=== PATIENT | female | born 1995 | race Caucasian/White ===

== ENCOUNTER 2016-12-09 05:42 | Emergency (ER) | payer OTHER ==
[~2016-12-09] VITALS: Ht 170.2 cm; Wt 59.3 kg
[~2016-12-09 05:42] MED LIST: PRENTAB26 PO
[2016-12-09] MEDS ORDERED: ONDANSETRON INJ 2 MG/ML 2 ML VIAL IV STA (06:03)
[2016-12-09] MEDS ORDERED: MoRPHine SULFATE 4 MG/ML 1 ML CARP\\VIAL IV STA (06:03)
[2016-12-09] MEDS ORDERED: SODIUM CHLORIDE 0.9% 1000ML 1,000 ML IV STA ×2 (06:03)
[2016-12-09] MEDS ORDERED: ALUMINUM/MAGNESIUM SUSP 30 ML UDC PO STA (06:05)
[2016-12-09] MEDS ORDERED: LIDOCAINE HCL 2% VISC SOLN 20 ML UDC PO STA (06:05)
[2016-12-09 06:44] LABS: BASO % 0.3 %; BASO ABS # 0.02 K/uL (0-0.2); COMPLETE YES; HEMATOCRIT 39.4 % (37-47); IG% 0.3 %; LYMPH % 13.4 %; MEAN CELL VOLUME 83.1 fL (80-100); MEAN CORPUSCULAR HEMOGLOBIN 30.2 pg (25-34); MEAN CORPUSCULAR HGB CONC 36.3 g/dl (32-36); MEAN PLATELET VOLUME 9.7 fL (7.4-10.4); MONO % 9.1 %; NEUT % 75.9 %; PLATELET COUNT 156 K/uL (130-400); RED BLOOD COUNT 4.74 M/uL (4.2-5.4); WHITE BLOOD COUNT 6.72 K/uL (4.8-10.8)
[2016-12-09 06:47] LABS: URINE APPEARANCE CLEAR (CLEAR); URINE BILIRUBIN NEG (NEG); URINE COLOR YELLOW; URINE NITRITE NEG (NEG); URINE PH 5.5 (4.5-7.5); URINE SPECIFIC GRAVITY 1.009 (1.000-1.030); UROBILINOGEN NEG (NEG); ZZUR CULT IF INDIC CLEAN CATCH NO
[2016-12-09 06:49] LABS: MANUAL MICROSCOPIC REQUIRED? NO; REVIEW REQ? NO
[2016-12-09 07:01] LABS: BUN/CREATININE RATIO 14.6 (10-20); CALCIUM 8.4 mg/dl (8.5-10.1); CREATININE 0.72 mg/dl (0.60-1.20); POTASSIUM 3.1 mmol/L (3.5-5.1)
[2016-12-09 07:05] LABS: PREG INTERNAL NEGATIVE QC NEG CLEAR BACKGROUND; PREG INTERNAL POSITIVE QC POS CONTROL LINE
--- NOTE | 2016-12-09 07:50 | DIAGNOSTIC IMAGING REPORT ---
[facility] ultrasound GALLBLADDER-ABD LIMITED CLINICAL HISTORY: rug pain, ? GB pain. Nausea. TECHNIQUE: Real-time ultrasound COMPARISON STUDY: None FINDINGS: Trace amount of sludge within the gallbladder lumen. Very small polyp measuring 2 mm. No significant shadowing gallstones., Wall top limits normal 3 mm. Critical trace pericholecystic fluid. Common bile duct 5 mm. Liver pancreas and right kidney are unremarkable. IMPRESSION: 1. Small amount of gallbladder sludge with a small gallbladder polyp. 2. Slight prominence the gallbladder wall with a trace amount of pericholecystic fluid. 3. Normal caliber bile ducts. 4. Acute cholecystitis must be consideration diagnostically Electronically signed by: Aidan Haque M.D. 12/09/2016 7:49 AM Dictated Date/Time: 12/09/2016 7:45 AM
[2016-12-09] MEDS ORDERED: MoRPHine SULFATE 2 MG/ML CARP IV STA (09:00)
[2016-12-09] MEDS ORDERED: AMPICILLIN/SULBACTAM SOD INJ 3,000 MG in SODIUM CHLORIDE 0.9% 100ML 100 ML IV STA (10:11)
[2016-12-09] MEDS ORDERED: BUPIVACAINE/EPINEPHRINE 0.5% MPF 1:200,000 30 ML VIAL ONE (10:16)
[2016-12-09] MEDS ORDERED: LIDOCAINE HCL 2% 2 ML VIAL (20MG/ML) ONE (10:18)
[2016-12-09] MEDS ORDERED: PROPOFOL IV EMULSION 10 MG/ML 20 ML VIAL IV ONE (10:18)
[2016-12-09] MEDS ORDERED: NEOSTIGMINE METHYLSULFATE 5 MG/5 ML SYR ONE (10:18)
[2016-12-09] MEDS ORDERED: MIDAZOLAM HCL 1 MG/ML 2ML VIAL ONE (10:18)
[2016-12-09] MEDS ORDERED: ROCURONIUM BROMIDE 10 MG/ML 5 ML VIAL ONE (10:18)
[2016-12-09] MEDS ORDERED: GLYCOPYRROLATE INJ 0.2 MG/ML VIAL ONE ×2 (10:18→11:50)
[2016-12-09] MEDS ORDERED: ONDANSETRON INJ 2 MG/ML 2 ML VIAL ONE (10:18)
[2016-12-09] MEDS ORDERED: FENTANYL CITRATE INJ 50 MCG/1 ML 2 ML VIAL ONE (10:18)
[2016-12-09] MEDS ORDERED: DEXAMETHASONE SOD INJ 4 MG/ML VIAL ONE (10:18)
--- NOTE | 2016-12-09 10:33 | History and Physical ---
History & Physical Date Dec 09, 2016. Chief Complaint upper abdominal pain, nausea and vomitting History of Present Illness The patient is a 21 year old female with complaints of 2-3 day history of worsening upper abdominal pain, radiation into the back, with nausea and vomitting. feeling better after pain/nausea meds but still having some epigastric discomfort Past Medical/Surgical History Medical Problems: (1) Spontaneous onset of labor Additional History Hepatic Disease: No Endocrine Disorder: No Kidney Disease: No Hypertension: No Heart Disease: No Bleeding Tendencies: No Infectious Diseases: No Allergies Coded Allergies: No Known Allergies (Unverified , 07/03/16) Home Medications Unable to Obtain Active Prescriptions or Reported Meds Physical Examination Skin: warm/dry Eyes: normal inspection, EOMI Head: normocephalic Neck: supple Respiratory/Chest: lungs clear, no respiratory distress Cardiovascular: no edema Abdomen / GI: + pertinent finding (+RUQ and epigastric TTP. no g/r/r) Extremities: normal inspection Diagnosis US shows acute cholecystitis with pericholecystic fluid discussed options discussed risks of surgery ( bleeding/infection/dvt/pe/mi/injury to bile ducts or bowel etc...) questions answered. she would like to proceed with lap chandu today
[2016-12-09] MEDS ORDERED: HYDR-5688 PO (10:34)
[2016-12-09 10:35] VITALS: O2SAT 99; Ht 170.2 cm; Wt 59.3 kg
--- NOTE | 2016-12-09 10:36 | Discharge Instructions ---
Discharge Instructions Admission Reason for Admission: acute cholecystitis Discharge Discharge Diagnosis / Problem: cholecystitis Discharge Goals Goal(s): Decrease discomfort, Improve function Activity Recommendations Activity Limitations: per Instructions/Follow-up section Exercise/Sports Limitations: until after follow-up appointment May Resume Sexual Activity: after follow-up appointment Shower/Bathe: tomorrow . Instructions / Follow-Up Instructions / Follow-Up call [phone] for follow up appointment with Dr. Duran in 1-2 weeks. no lifting over 15-20 lbs or strenuous activity Current Hospital Diet Patient's current hospital diet: Discharge Diet Recommended Diet: Regular Diet Procedures Procedures Performed: cholecystectomy Pending Studies Studies pending at discharge: yes List of pending studies: pathology report Medical Emergencies . Who to Call and When: Medical Emergencies: If at any time you feel your situation is an emergency, please call 911 immediately. . Non-Emergent Contact Non-Emergency issues call your: Primary Care Provider, Surgeon Call Non-Emergent contact if: temperature is above 101, wound has increased drainage, wound has increased redness, wound has increased pain . "Provider Documentation" section prepared by Juanjo Duran. VTE Core Measure Inpt VTE Proph given/why not?: SCD's
[2016-12-09] MEDS ORDERED: MEPERIDINE HCL 25 MG/ML CARP IV PRN (11:00)
[2016-12-09] MEDS ORDERED: ONDANSETRON INJ 2 MG/ML 2 ML VIAL IV PRN ×2 (11:00→12:00)
[2016-12-09] MEDS ORDERED: EpHEDrine SULFATE INJ 50 MG/ML AMP IV PRN (11:00)
[2016-12-09] MEDS ORDERED: LABETALOL HCL IV 5 MG/ML 20ML IV PRN (11:00)
[2016-12-09] MEDS ORDERED: HYDROmorphone INJ 1 MG/ML SYR IV PRN (11:00)
[2016-12-09] MEDS ORDERED: ATROPINE SULFATE 0.1 MG/ML 5ML SYR IV PRN (11:00)
[2016-12-09] MEDS ORDERED: SODIUM CHLORIDE 0.9% 1000ML 1,000 ML IV SCH (11:56)
--- NOTE | 2016-12-09 11:56 | [facility] Operative Report ---
Operative Report Operative Date Dec 09, 2016. Pre-Operative Diagnosis Acute Cholecystitis with Pericholecystic Fluid Post-Operative Diagnosis acute cholecystitis Procedure(s) Performed lap chandu Surgeon Dr. Duran [employer] Supervisor Surgeon(s) none Estimated Blood Loss 10 mL Findings mild acute inflammation Specimens A: gall bladder and contents Anesthesia GET Complication(s) None Disposition Recovery Room / PACU I attest to the content of the Intraoperative Record and any orders documented therein. Any exceptions are noted below.
[2016-12-09] MEDS ORDERED: HYDROCODONE/ACETAMOPHEN 5/325MG TAB PO PRN ×2 (12:00)
[2016-12-09] MEDS ORDERED: IBUPROFEN 600 MG TAB PO PRN (12:00)
[2016-12-09] MEDS ORDERED: KETOROLAC TROMETHAMINE 30 MG/ML VIAL IV. PRN (12:00)
[2016-12-09] MEDS: FENTANYL CITRATE INJ 50 MCG/1 ML 2 ML VIAL IV PRN ×2 (12:25→12:30)
--- NOTE | 2016-12-09 12:33 | OPERATIVE REPORT ---
DATE OF OPERATION: 12/09/2016 PREOPERATIVE DIAGNOSIS: Acute cholecystitis. POSTOPERATIVE DIAGNOSIS: Same. PROCEDURE: Laparoscopic cholecystectomy. SURGEON: Dr. Duran. ESTIMATED BLOOD LOSS: Approximately 10 mL. COMPLICATIONS: No immediate. ANESTHESIA: General endotracheal. The patient tolerated the procedure well. OPERATIVE NOTE: After informed consent was obtained, the patient was taken to the operating suite and placed in the supine position. After successful intubation, the abdomen was sterilely prepped and draped in usual fashion. A periumbilical incision was made with an 11 blade scalpel and carried down through the soft tissue using electrocautery. The anterior rectus fascia was opened using electrocautery and two #0 Vicryl stay sutures were placed. Peritoneum was elevated with hemostats and incised under direct vision using a Metzenbaum scissors. A finger sweep was performed. A 12 mm Meme trocar was placed. The abdomen was insufflated to 18 mmHg. Laparoscope was inserted and the abdomen was examined 360 degrees. A subxiphoid 5-mm port and 2 right upper quadrant 5 mm ports were placed under direct vision. The patient was placed in reverse Trendelenburg position slightly airplaned to the left. The gallbladder was grasped and elevated superiorly and laterally. A [place] dissector was used to take down adhesions around the neck of the gallbladder. There was some mild acute inflammation. I was able to skeletonize the cystic duct, clip it twice proximally and once distally and transected using laparoscopic scissors. In similar fashion, the cystic artery was identified, skeletonized, clipped and divided as well. The gallbladder was removed from the gallbladder fossa using electrocautery. It was removed intact. Several small bleeding points in the gallbladder fossa were controlled using electrocautery as well. A thorough irrigation of the right upper quadrant was performed. At the end of the procedure, there was adequate hemostasis and no evidence of a bile leak. A quick look around the abdomen showed no other gross abnormalities. The gallbladder was placed into an EndoCatch bag and removed from the camera port site. The trocars were all removed and the abdomen desufflated. The fascia of the camera port was closed using 0 Vicryl in a [id number] fashion. All the wounds were irrigated and closed using 4-0 Monocryl. Marcaine was injected around them for postoperative analgesia and skin glue used as a dressing. The patient was awakened, extubated, and transferred to recovery in stable condition. I attest to the content of the Intraoperative Record and any orders documented therein. Any exceptio ns are noted below.
--- NOTE | 2016-12-09 12:46 | Anesthesiology Progress Note ---
Anesthesia Post Op Note Date & Time Dec 09, 2016 at 12:46 Vital Signs Pain Intensity: 4 Vital Signs Past 12 Hours Date Time Temp Pulse Resp B/P Pulse Ox O2 Delivery O2 Flow Rate FiO2 12/09/16 12:30 63 16 120/70 96 Room Air 12/09/16 12:20 67 16 117/68 100 Mask 10 12/09/16 12:08 91 16 120/72 100 Mask 10 12/09/16 12:02 36.2 91 12 126/77 100 Mask 10 12/09/16 10:35 99 Room Air 12/09/16 10:20 62 20 108/63 97 12/09/16 09:47 60 18 106/58 99 Room Air 12/09/16 07:51 66 20 130/71 100 Room Air 12/09/16 06:35 Room Air 12/09/16 05:48 36.5 79 18 112/69 98 Room Air Notes Mental Status: alert / awake / arousable, participated in evaluation Pt Amnestic to Procedure: Yes Nausea / Vomiting: adequately controlled Pain: adequately controlled Airway Patency, RR, SpO2: stable & adequate BP & HR: stable & adequate Hydration State: stable & adequate Anesthetic Complications: no major complications apparent
[2016-12-09 12:53] VITALS: BP 108/61; PULSE 60; TEMP 37; O2SAT 96
[2016-12-09] MEDS ORDERED: KETOROLAC TROMETHAMINE 30 MG/ML VIAL ONE (13:02)
[2016-12-09 13:20] VITALS: BP 125/78; PULSE 72; O2SAT 97
--- NOTE | 2016-12-09 17:37 | EMERGENCY ROOM VISIT NOTE ---
ED Visit Note First contact with patient: 08:28 Patient was signed out to me by Tanvir JAMES. Please see her dictation for full history and physical. Patient has remained stable. Right upper quadrant abdominal ultrasound has been read as positive for gallbladder sludge, gallbladder polyp, pericholecystic fluid, and consideration of acute cholecystitis. Patient is currently pain-free after having received morphine earlier. She has had intermittent but persistent symptoms for the last 4 days. It became acutely worse last night. She has had no food since dinner last night. She did sip water overnight but has not had anything by mouth for the last 2-1/2 hours. I did speak with Dr. Duran from general surgery regarding this patient's findings. She is afebrile with no elevation in white count. He did come to the ED to evaluate the patient. After further discussion with the patient, she elected to proceed with cholecystectomy today. She remained nothing by mouth. She was given Unasyn 3 g IV per the recommendation of Dr. Duran. Please see his dictation for final management. Current/Historical Medications Scheduled PRN Hydrocodone/Acetaminophen 5MG/325MG ([place] 5MG/325MG), 1-2 TABLET PO Q4 PRN for Pain Allergies Coded Allergies: No Known Allergies (Unverified , 07/03/16) Vital Signs Date Time Temp Pulse Resp B/P Pulse Ox O2 Delivery O2 Flow Rate FiO2 12/09/16 13:20 72 16 125/78 97 Room Air 12/09/16 12:53 37. 60 16 105/66 99 Room Air 12/09/16 12:53 37. 60 16 108/61 96 Room Air 12/09/16 12:50 37.2 59 16 112/62 97 Room Air 12/09/16 12:40 37.2 62 16 115/64 98 Room Air 12/09/16 12:30 63 16 120/70 96 Room Air 12/09/16 12:20 67 16 117/68 100 Mask 10 12/09/16 12:08 91 16 120/72 100 Mask 10 12/09/16 12:02 36.2 91 12 126/77 100 Mask 10 12/09/16 10:35 99 Room Air 12/09/16 10:20 62 20 108/63 97 12/09/16 09:47 60 18 106/58 99 Room Air 12/09/16 07:51 66 20 130/71 100 Room Air 12/09/16 06:35 Room Air 12/09/16 05:48 36.5 79 18 112/69 98 Room Air Laboratory Results 12/09/16 06:30 Red Blood Count 4.74, Mean Corpuscular Volume 83.1, Mean Corpuscular Hemoglobin 30.2, Mean Corpuscular Hemoglobin Concent 36.3, Mean Platelet Volume 9.7, Neutrophils (%) (Auto) 75.9, Lymphocytes (%) (Auto) 13.4, Monocytes (%) (Auto) 9.1, Eosinophils (%) (Auto) 1.0, Basophils (%) (Auto) 0.3, Neutrophils # (Auto) 5.10, Lymphocytes # (Auto) 0.90, Monocytes # (Auto) 0.61, Eosinophils # (Auto) 0.07, Basophils # (Auto) 0.02 12/09/16 06:30 Test 12/09/16 06:30 White Blood Count 6.72 K/uL (4.8-10.8) Red Blood Count 4.74 M/uL (4.2-5.4) Hemoglobin 14.3 g/dL (12.0-16.0) Hematocrit 39.4 % (37-47) Mean Corpuscular Volume 83.1 fL (80-100) Mean Corpuscular Hemoglobin 30.2 pg (25-34) Mean Corpuscular Hemoglobin Concent 36.3 g/dl (32-36) Platelet Count 156 K/uL (130-400) Mean Platelet Volume 9.7 fL (7.4-10.4) Neutrophils (%) (Auto) 75.9 % Lymphocytes (%) (Auto) 13.4 % Monocytes (%) (Auto) 9.1 % Eosinophils (%) (Auto) 1.0 % Basophils (%) (Auto) 0.3 % Neutrophils # (Auto) 5.10 K/uL (1.4-6.5) Lymphocytes # (Auto) 0.90 K/uL (1.2-3.4) Monocytes # (Auto) 0.61 K/uL (0.11-0.59) Eosinophils # (Auto) 0.07 K/uL (0-0.5) Basophils # (Auto) 0.02 K/uL (0-0.2) RDW Standard Deviation 38.3 fL (36.4-46.3) RDW Coefficient of Variation 12.7 % (11.5-14.5) Immature Granulocyte % (Auto) 0.3 % Immature Granulocyte # (Auto) 0.02 K/uL (0.00-0.02) Urine Color YELLOW Urine Appearance CLEAR (CLEAR) Urine pH 5.5 (4.5-7.5) Urine Specific [place] 1.009 (1.000-1.030) Urine Protein NEG (NEG) Urine Glucose (UA) NEG (NEG) Urine Ketones NEG (NEG) Urine Occult Blood NEG (NEG) Urine Nitrite NEG (NEG) Urine Bilirubin NEG (NEG) Urine Urobilinogen NEG (NEG) Urine Leukocyte Esterase NEG (NEG) Anion Gap 11.0 mmol/L (3-11) Est Creatinine Clear Calc Drug Dose 114.7 ml/min Estimated GFR () 137.8 Estimated GFR (Non- 118.9 BUN/Creatinine Ratio 14.6 (10-20) Calcium Level 8.4 mg/dl (8.5-10.1) Total Bilirubin 0.8 mg/dl (0.2-1) Direct Bilirubin 0.3 mg/dl (0-0.2) Aspartate Amino Transf (AST/SGOT) 103 U/L (15-37) Alanine Aminotransferase (ALT/SGPT) 96 U/L (12-78) Alkaline Phosphatase 99 U/L (45-117) Total Protein 6.9 gm/dl (6.4-8.2) Albumin 3.7 gm/dl (3.4-5.0) Lipase 75 U/L (73-393) Human Chorionic Gonadotropin, Qual NEG (NEG) Medications Administered Medications (Trade) Dose Ordered Sig/Ge Route Start Time Stop Time Status Last Admin Dose Admin Morphine Sulfate (MoRPHine SULFATE INJ) 4 mg NOW STAT IV 12/09/16 06:03 12/09/16 06:05 DC 12/09/16 06:40 4 MG Ondansetron HCl 4 mg 4 mg NOW STAT IV 12/09/16 06:03 12/09/16 06:05 DC 12/09/16 06:40 4 MG Sodium Chloride 1,000 ml @ 999 mls/hr Q1H1M STAT IV 12/09/16 06:03 12/09/16 07:03 DC 12/09/16 06:16 999 MLS/HR Sodium Chloride (Nss 1000ml) 1,000 ml @ 125 mls/hr Q8H STAT IV 12/09/16 06:03 12/09/16 14:02 DC 12/09/16 06:03 125 MLS/HR Lidocaine HCl (Viscous Lidocaine 2% Soln) 10 ml NOW STAT PO 12/09/16 06:05 12/09/16 06:06 DC 12/09/16 06:15 10 ML Al Hydroxide/Mg Hydroxide (Maalox Susp) 30 ml NOW STAT PO 12/09/16 06:05 12/09/16 06:06 DC 12/09/16 06:15 30 ML Morphine Sulfate (MoRPHine SULFATE INJ) 2 mg NOW STAT IV 12/09/16 09:00 12/09/16 09:02 DC 12/09/16 09:12 2 MG Bupivacaine HCl/ Epinephrine Bitart (Sensorcaine/ Epinephrine 0.5% Mpf 1:200,000) 30 ml STK-MED ONCE .ROUTE 12/09/16 10:16 12/09/16 10:18 DC 12/09/16 10:16 11 ML Fentanyl Citrate (Fentanyl Inj) 50 mcg Q5M PRN IV 12/09/16 11:00 12/09/16 16:00 DC 12/09/16 12:30 50 MCG Ondansetron HCl (Zofran Inj) 4 mg Q6H PRN IV 12/09/16 12:00 12/10/16 11:59 12/09/16 13:15 4 MG Acetaminophen/ Hydrocodone Bitart ([place] 5/325 Tab) 2 tab Q4H PRN PO 12/09/16 12:00 12/23/16 11:59 12/09/16 13:25 2 TAB Ketorolac Tromethamine (Toradol Inj) 30 mg STK-MED ONCE .ROUTE 12/09/16 13:02 12/09/16 13:04 DC 12/09/16 13:05 30 MG Departure Information Prescriptions Hydrocodone/Acetaminophen 5MG/325MG ([place] 5MG/325MG) Tab 1-2 TABLET PO Q4 Y for Pain, #40 TAB Prov: Juanjo Duran D.O. 12/09/16 Referrals No Doctor, Assigned (PCP) Patient Instructions [facility]
--- NOTE | 2016-12-10 06:25 | EMERGENCY ROOM VISIT NOTE ---
History First contact with patient: 05:57 Chief Complaint: ABDOMINAL PAIN Stated Complaint: UPR ABDOMINAL PAIN RADIATES INTO CHEST AND BACK History of Present Illness The patient is a 21 year old female who presents to the Emergency Room with complaints of epigastric right upper quadrant pain for the past day described as aching, ranging in severity currently 6 out of 10. Nothing makes it better or worse. Patient denies chest pain, dyspnea, fever, chills, cough, congestion , numbness, dizziness. Patient had some vomiting and diarrhea the other day. Patient is concerned about her gallbladder. No black or blood in her stool or vomit. No prior imaging. She has tried some antacid medications with no relief of symptoms. Review of Systems See HPI for pertinent positives & negatives. A total of 10 systems reviewed and were otherwise negative. Past Medical/Surgical History Medical Problems: (1) Spontaneous onset of labor Social History Smoking Status: Never Smoker Alcohol Use: none Drug Use: none Marital Status: Housing Status: lives with family Current/Historical Medications Scheduled PRN Hydrocodone/Acetaminophen 5MG/325MG ([place] 5MG/325MG), 1-2 TABLET PO Q4 PRN for Pain Allergies Coded Allergies: No Known Allergies (Unverified , 07/03/16) Physical Exam Vital Signs Date Time Temp Pulse Resp B/P Pulse Ox O2 Delivery O2 Flow Rate FiO2 12/09/16 13:20 72 16 125/78 97 Room Air 12/09/16 12:53 37. 60 16 105/66 99 Room Air 12/09/16 12:53 37. 60 16 108/61 96 Room Air 12/09/16 12:50 37.2 59 16 112/62 97 Room Air 12/09/16 12:40 37.2 62 16 115/64 98 Room Air 12/09/16 12:30 63 16 120/70 96 Room Air 12/09/16 12:20 67 16 117/68 100 Mask 10 12/09/16 12:08 91 16 120/72 100 Mask 10 12/09/16 12:02 36.2 91 12 126/77 100 Mask 10 12/09/16 10:35 99 Room Air 12/09/16 10:20 62 20 108/63 97 12/09/16 09:47 60 18 106/58 99 Room Air 12/09/16 07:51 66 20 130/71 100 Room Air 12/09/16 06:35 Room Air 12/09/16 05:48 36.5 79 18 112/69 98 Room Air Physical Exam VITALS: Vitals are noted on the nurse's note and reviewed by myself. Vital signs stable. GENERAL: Pleasant female, in no acute distress, nondiaphoretic, well-developed well-nourished. SKIN: The skin was without rashes, erythema, edema, or bruising. There is no tenting of the skin. Capillary reflex less than 2 seconds. HEAD: Normocephalic atraumatic. EARS: External auditory canals clear, tympanic membranes pearly camejo without erythema or effusion bilaterally. EYES: Pupils equal round and reactive to light and accommodation. Conjunctivae without injection, sclerae without icterus. Extraocular movements intact. NOSE: Patent, turbinates without inflammation or discharge. MOUTH: Mucous membranes moist. Pharynx without erythema or exudate. Uvula midline. Airway patent. Tongue does not deviate. NECK: Supple without nuchal rigidity. No lymphadenopathy. No thyromegaly. Cervical spine is nontender. No JVD. HEART: Regular rate and rhythm without murmurs gallops or rubs. LUNGS: Clear to auscultation bilaterally without wheezes, rales or rhonchi. No dullness to percussion. No retractions or accessory muscle use. ABDOMEN: Positive bowel sounds x 4. Normal tympanic percussion. Soft, tender to palpation epigastric region, no CVA tenderness, without masses or organomegaly. No guarding or rebound tenderness. MUSCULOSKELETAL: No muscle atrophy, erythema, or edema noted. NEURO: Patient was alert and oriented to person place and time. Normal sensation to light and sharp touch. No focal neurological deficits. Medical Decision & Procedures Laboratory Results 12/09/16 06:30 Red Blood Count 4.74, Mean Corpuscular Volume 83.1, Mean Corpuscular Hemoglobin 30.2, Mean Corpuscular Hemoglobin Concent 36.3, Mean Platelet Volume 9.7, Neutrophils (%) (Auto) 75.9, Lymphocytes (%) (Auto) 13.4, Monocytes (%) (Auto) 9.1, Eosinophils (%) (Auto) 1.0, Basophils (%) (Auto) 0.3, Neutrophils # (Auto) 5.10, Lymphocytes # (Auto) 0.90, Monocytes # (Auto) 0.61, Eosinophils # (Auto) 0.07, Basophils # (Auto) 0.02 12/09/16 06:30 Test 12/09/16 06:30 White Blood Count 6.72 K/uL (4.8-10.8) Red Blood Count 4.74 M/uL (4.2-5.4) Hemoglobin 14.3 g/dL (12.0-16.0) Hematocrit 39.4 % (37-47) Mean Corpuscular Volume 83.1 fL (80-100) Mean Corpuscular Hemoglobin 30.2 pg (25-34) Mean Corpuscular Hemoglobin Concent 36.3 g/dl (32-36) Platelet Count 156 K/uL (130-400) Mean Platelet Volume 9.7 fL (7.4-10.4) Neutrophils (%) (Auto) 75.9 % Lymphocytes (%) (Auto) 13.4 % Monocytes (%) (Auto) 9.1 % Eosinophils (%) (Auto) 1.0 % Basophils (%) (Auto) 0.3 % Neutrophils # (Auto) 5.10 K/uL (1.4-6.5) Lymphocytes # (Auto) 0.90 K/uL (1.2-3.4) Monocytes # (Auto) 0.61 K/uL (0.11-0.59) Eosinophils # (Auto) 0.07 K/uL (0-0.5) Basophils # (Auto) 0.02 K/uL (0-0.2) RDW Standard Deviation 38.3 fL (36.4-46.3) RDW Coefficient of Variation 12.7 % (11.5-14.5) Immature Granulocyte % (Auto) 0.3 % Immature Granulocyte # (Auto) 0.02 K/uL (0.00-0.02) Urine Color YELLOW Urine Appearance CLEAR (CLEAR) Urine pH 5.5 (4.5-7.5) Urine Specific [place] 1.009 (1.000-1.030) Urine Protein NEG (NEG) Urine Glucose (UA) NEG (NEG) Urine Ketones NEG (NEG) Urine Occult Blood NEG (NEG) Urine Nitrite NEG (NEG) Urine Bilirubin NEG (NEG) Urine Urobilinogen NEG (NEG) Urine Leukocyte Esterase NEG (NEG) Anion Gap 11.0 mmol/L (3-11) Est Creatinine Clear Calc Drug Dose 114.7 ml/min Estimated GFR () 137.8 Estimated GFR (Non- 118.9 BUN/Creatinine Ratio 14.6 (10-20) Calcium Level 8.4 mg/dl (8.5-10.1) Total Bilirubin 0.8 mg/dl (0.2-1) Direct Bilirubin 0.3 mg/dl (0-0.2) Aspartate Amino Transf (AST/SGOT) 103 U/L (15-37) Alanine Aminotransferase (ALT/SGPT) 96 U/L (12-78) Alkaline Phosphatase 99 U/L (45-117) Total Protein 6.9 gm/dl (6.4-8.2) Albumin 3.7 gm/dl (3.4-5.0) Lipase 75 U/L (73-393) Human Chorionic Gonadotropin, Qual NEG (NEG) Medications Administered Medications (Trade) Dose Ordered Sig/Ge Route Start Time Stop Time Status Last Admin Dose Admin Morphine Sulfate (MoRPHine SULFATE INJ) 4 mg NOW STAT IV 12/09/16 06:03 12/09/16 06:05 DC 12/09/16 06:40 4 MG Ondansetron HCl 4 mg 4 mg NOW STAT IV 12/09/16 06:03 12/09/16 06:05 DC 12/09/16 06:40 4 MG Sodium Chloride 1,000 ml @ 999 mls/hr Q1H1M STAT IV 12/09/16 06:03 12/09/16 07:03 DC 12/09/16 06:16 999 MLS/HR Sodium Chloride (Nss 1000ml) 1,000 ml @ 125 mls/hr Q8H STAT IV 12/09/16 06:03 12/09/16 14:02 DC 12/09/16 06:03 125 MLS/HR Lidocaine HCl (Viscous Lidocaine 2% Soln) 10 ml NOW STAT PO 12/09/16 06:05 12/09/16 06:06 DC 12/09/16 06:15 10 ML Al Hydroxide/Mg Hydroxide (Maalox Susp) 30 ml NOW STAT PO 12/09/16 06:05 12/09/16 06:06 DC 12/09/16 06:15 30 ML Morphine Sulfate (MoRPHine SULFATE INJ) 2 mg NOW STAT IV 12/09/16 09:00 12/09/16 09:02 DC 12/09/16 09:12 2 MG Bupivacaine HCl/ Epinephrine Bitart (Sensorcaine/ Epinephrine 0.5% Mpf 1:200,000) 30 ml STK-MED ONCE .ROUTE 12/09/16 10:16 12/09/16 10:18 DC 12/09/16 10:16 11 ML Fentanyl Citrate (Fentanyl Inj) 50 mcg Q5M PRN IV 12/09/16 11:00 12/09/16 16:00 DC 12/09/16 12:30 50 MCG Ondansetron HCl (Zofran Inj) 4 mg Q6H PRN IV 12/09/16 12:00 12/09/16 18:18 DC 12/09/16 13:15 4 MG Acetaminophen/ Hydrocodone Bitart ([place] 5/325 Tab) 2 tab Q4H PRN PO 12/09/16 12:00 12/09/16 18:18 DC 12/09/16 13:25 2 TAB Ketorolac Tromethamine (Toradol Inj) 30 mg STK-MED ONCE .ROUTE 12/09/16 13:02 12/09/16 13:04 DC 12/09/16 13:05 30 MG ED Course Prior records/ancillary studies reviewed. Triage Nursing notes reviewed. Additional history obtained from family. The patient's history was concerning for abdominal pain. Differential diagnosis: Etiologies such as appendicitis, diverticulitis, PUD, biliary pathology, UTI, pancreatitis, obstruction, mesenteric ischemia, aortic pathology, infections, inflammatory bowel disease, renal colic, as well as others were entertained. Physical examination findings: As above. ER treatment provided: GI cocktail, morphine, Zofran, IV fluids On reassessment the patient felt better. Diagnostics interpreted by me: The labs revealed no worrisome leukocytosis or anemia Imaging studies: pending Case is signed out to the Jerrod Corado PA-C pending ultrasound, labs and reevaluation in stable condition. Medical Decision As above Impression Primary Impression: Abdominal discomfort, epigastric Departure Information Prescriptions Hydrocodone/Acetaminophen 5MG/325MG ([place] 5MG/325MG) Tab 1-2 TABLET PO Q4 Y for Pain, #40 TAB Prov: Juanjo Duran D.O. 12/09/16 Referrals No Doctor, Assigned (PCP) Patient Instructions Replaced By [facility]
== END 2016-12-09 10:55 | disposition home or self-care (01) ==
LOC: C.EDB 05:43
DX: K81.0 Acute cholecystitis (principal); K82.9 Disease of gallbladder, unspecified; R11.10 Vomiting, unspecified; R19.7 Diarrhea, unspecified

== ENCOUNTER 2016-12-28 03:04 | Emergency (ER) | payer OTHER ==
[~2016-12-28] VITALS: Ht 170.2 cm; Wt 59.4 kg
[~2016-12-28 03:04] MED LIST changes: +HYDR-5688 PO; -PRENTAB26 PO
[2016-12-28 03:06] VITALS: Ht 170.2 cm; Wt 59.4 kg
[2016-12-28] MEDS ORDERED: MoRPHine SULFATE 4 MG/ML 1 ML CARP\\VIAL IV STA (03:16)
[2016-12-28] MEDS ORDERED: SODIUM CHLORIDE 0.9% 1000ML 1,000 ML IV STA ×2 (03:16)
[2016-12-28] MEDS ORDERED: ONDANSETRON INJ 2 MG/ML 2 ML VIAL IV STA (03:16)
[2016-12-28 03:52] LABS: COMPLETE YES; EOS % 1.2 %; HEMATOCRIT 36.8 % (37-47); IG% 0.3 %; LYMPH % 29.3 %; LYMPH ABS # 1.72 K/uL (1.2-3.4); MEAN CELL VOLUME 85.6 fL (80-100); MEAN CORPUSCULAR HEMOGLOBIN 30.5 pg (25-34); MEAN CORPUSCULAR HGB CONC 35.6 g/dl (32-36); MEAN PLATELET VOLUME 9.6 fL (7.4-10.4); MONO % 7.7 %; NEUT % 61.5 %; PLATELET COUNT 194 K/uL (130-400); WHITE BLOOD COUNT 5.88 K/uL (4.8-10.8)
[2016-12-28 04:16] LABS: BUN/CREATININE RATIO 36.8 (10-20); CALCIUM 8.4 mg/dl (8.5-10.1); CREATININE 0.67 mg/dl (0.60-1.20); POTASSIUM 3.7 mmol/L (3.5-5.1)
[2016-12-28 04:30] LABS: PREG INTERNAL NEGATIVE QC NEG CLEAR BACKGROUND; PREG INTERNAL POSITIVE QC POS CONTROL LINE
[2016-12-28] MEDS ORDERED: PANTOprazole SOD 40 MG TAB PO STA (04:32)
[2016-12-28] MEDS ORDERED: PANT40TA PO (05:08)
--- NOTE | 2016-12-28 05:08 | EMERGENCY ROOM VISIT NOTE ---
History First contact with patient: 03:12 Chief Complaint: ABDOMINAL PAIN Stated Complaint: UPPER ABDOMINAL PAIN History of Present Illness The patient is a 21 year old female who presents to the Emergency Room with complaints of nausea, vomiting and severe epigastric pain that radiates to her chest for the past few hours. Patient had a gallbladder out 2 weeks ago. Patient states she was doing well until tonight. She had chicken tacos tonight for dinner. She describes the pain as aching, ranging in severity 9 out of 10. Nothing makes it better or worse. Patient denies chest pain, dyspnea, fever, chills, diarrhea, urinary symptoms, back pain. She does not drink alcohol. No history of similar symptoms in the past. She states this feels different from her gallbladder attack. Review of Systems See HPI for pertinent positives & negatives. A total of 10 systems reviewed and were otherwise negative. Past Medical/Surgical History Medical Problems: (1) Spontaneous onset of labor Cholecystectomy Social History Smoking Status: Never Smoker Alcohol Use: none Drug Use: none Marital Status: Housing Status: lives with family Current/Historical Medications No Active Prescriptions or Reported Meds Allergies Coded Allergies: No Known Allergies (Unverified , 07/03/16) Physical Exam Vital Signs Date Time Temp Pulse Resp B/P Pulse Ox O2 Delivery O2 Flow Rate FiO2 12/28/16 04:22 64 18 96/42 100 Room Air 12/28/16 03:45 53 12/28/16 03:30 Room Air 12/28/16 03:06 36.4 62 18 90/50 97 Room Air Physical Exam VITALS: Vitals are noted on the nurse's note and reviewed by myself. Vital signs stable. GENERAL: Pleasant female in obvious pain, in no acute distress, nondiaphoretic, well-developed well-nourished. SKIN: The skin was without rashes, erythema, edema, or bruising. There is no tenting of the skin. Capillary reflex less than 2 seconds. HEAD: Normocephalic atraumatic. EARS: External auditory canals clear, tympanic membranes pearly camejo without erythema or effusion bilaterally. EYES: Pupils equal round and reactive to light and accommodation. Conjunctivae without injection, sclerae without icterus. Extraocular movements intact. NOSE: Patent, turbinates without inflammation or discharge. MOUTH: Mucous membranes moist. Tonsils are not enlarged. Pharynx without erythema or exudate. Uvula midline. Airway patent. Tongue does not deviate. NECK: Supple without nuchal rigidity. No lymphadenopathy. No thyromegaly. Cervical spine is nontender. No JVD. HEART: Regular rate and rhythm without murmurs gallops or rubs. LUNGS: Clear to auscultation bilaterally without wheezes, rales or rhonchi. No dullness to percussion. No retractions or accessory muscle use. ABDOMEN: Positive bowel sounds x 4. Normal tympanic percussion. Soft, tender to palpation epigastric region, no CVA tenderness, without masses or organomegaly. Fernandez sign negative. No guarding or rebound tenderness. MUSCULOSKELETAL: No muscle atrophy, erythema, or edema noted. NEURO: Patient was alert and oriented to person place and time. Normal sensation to light and sharp touch. No focal neurological deficits. Medical Decision & Procedures Laboratory Results 12/28/16 03:33 Red Blood Count 4.30, Mean Corpuscular Volume 85.6, Mean Corpuscular Hemoglobin 30.5, Mean Corpuscular Hemoglobin Concent 35.6, Mean Platelet Volume 9.6, Neutrophils (%) (Auto) 61.5, Lymphocytes (%) (Auto) 29.3, Monocytes (%) (Auto) 7.7, Eosinophils (%) (Auto) 1.2, Basophils (%) (Auto) 0.0, Neutrophils # (Auto) 3.62, Lymphocytes # (Auto) 1.72, Monocytes # (Auto) 0.45, Eosinophils # (Auto) 0.07, Basophils # (Auto) 0.00 12/28/16 03:33 Test 12/28/16 03:33 12/28/16 04:20 White Blood Count 5.88 K/uL (4.8-10.8) Red Blood Count 4.30 M/uL (4.2-5.4) Hemoglobin 13.1 g/dL (12.0-16.0) Hematocrit 36.8 % (37-47) Mean Corpuscular Volume 85.6 fL (80-100) Mean Corpuscular Hemoglobin 30.5 pg (25-34) Mean Corpuscular Hemoglobin Concent 35.6 g/dl (32-36) Platelet Count 194 K/uL (130-400) Mean Platelet Volume 9.6 fL (7.4-10.4) Neutrophils (%) (Auto) 61.5 % Lymphocytes (%) (Auto) 29.3 % Monocytes (%) (Auto) 7.7 % Eosinophils (%) (Auto) 1.2 % Basophils (%) (Auto) 0.0 % Neutrophils # (Auto) 3.62 K/uL (1.4-6.5) Lymphocytes # (Auto) 1.72 K/uL (1.2-3.4) Monocytes # (Auto) 0.45 K/uL (0.11-0.59) Eosinophils # (Auto) 0.07 K/uL (0-0.5) Basophils # (Auto) 0.00 K/uL (0-0.2) RDW Standard Deviation 41.2 fL (36.4-46.3) RDW Coefficient of Variation 13.2 % (11.5-14.5) Immature Granulocyte % (Auto) 0.3 % Immature Granulocyte # (Auto) 0.02 K/uL (0.00-0.02) Anion Gap 9.0 mmol/L (3-11) Est Creatinine Clear Calc Drug Dose 123.5 ml/min Estimated GFR () 144.6 Estimated GFR (Non- 124.8 BUN/Creatinine Ratio 36.8 (10-20) Calcium Level 8.4 mg/dl (8.5-10.1) Total Bilirubin 0.4 mg/dl (0.2-1) Direct Bilirubin 0.1 mg/dl (0-0.2) Aspartate Amino Transf (AST/SGOT) 121 U/L (15-37) Alanine Aminotransferase (ALT/SGPT) 101 U/L (12-78) Alkaline Phosphatase 144 U/L (45-117) Total Protein 6.7 gm/dl (6.4-8.2) Albumin 3.8 gm/dl (3.4-5.0) Lipase 145 U/L (73-393) Human Chorionic Gonadotropin, Qual NEG (NEG) Medications Administered Medications (Trade) Dose Ordered Sig/Ge Route Start Time Stop Time Status Last Admin Dose Admin Morphine Sulfate (MoRPHine SULFATE INJ) 4 mg NOW STAT IV 12/28/16 03:16 12/28/16 03:17 DC 12/28/16 03:35 4 MG Ondansetron HCl 4 mg 4 mg NOW STAT IV 12/28/16 03:16 12/28/16 03:17 DC 12/28/16 03:35 4 MG Sodium Chloride 1,000 ml @ 999 mls/hr Q1H1M STAT IV 12/28/16 03:16 12/28/16 04:16 DC 12/28/16 03:34 999 MLS/HR Sodium Chloride (Nss 1000ml) 1,000 ml @ 125 mls/hr Q8H STAT IV 12/28/16 03:16 12/28/16 11:15 12/28/16 03:34 125 MLS/HR Pantoprazole Sodium (Protonix Tab) 40 mg NOW STAT PO 12/28/16 04:32 12/28/16 04:33 DC 12/28/16 04:48 40 MG ED Course Prior records/ancillary studies reviewed. Triage Nursing notes reviewed. Additional history obtained from family. The patient's history was concerning for abdominal pain. Differential diagnosis: Etiologies such as appendicitis, diverticulitis, PUD, biliary pathology, UTI, pancreatitis, obstruction, mesenteric ischemia, aortic pathology, infections, inflammatory bowel disease, renal colic, as well as others were entertained. Physical examination findings: As above. ER treatment provided: Morphine, Zofran, IV fluids On reassessment the patient felt better. Diagnostics interpreted by me: The labs revealed no worrisome leukocytosis. Minimally elevated LFTs seems consistent with patient's recent cholecystectomy Imaging studies: US RUQ: Cholecystectomy. Both intra-and extrahepatic biliary dilatation. CBD in region of gwendolyn hepatis measures about 9 mm in caliber. Correlate with labs. If concern for choledocholithiasis, consider MRCP , as indicated. Possible mild increased echogenicity of liver. Radiologist: Eladio Kent M.D. Study ready at 04:24 and initial results transmitted Consultation: A consultation was placed with the pharmacist had and states Protonix should be safe with breast-feeding. The case was discussed and diagnostics were reviewed. Exam and history seem consistent with epigastric discomfort that could be related to gastritis. Patient was started on a PPI.. Patient was tolerating fluids. She felt much better. She is advised to follow-up health services in a few days or here in the ER sooner for abdominal pain, fevers, vomiting, worsening signs or symptoms or as needed. she was informed that the narcotics can cause sedation to her child. She is advised to avoid taking them unless she severely needed them.By the evaluation outlined above emergent etiologies such as appendicitis, diverticulitis, UTI, pancreatitis, obstruction, mesenteric ischemia, aortic pathology, infections, inflammatory bowel disease, renal colic, as well as others were deemed relatively unlikely. The pt informed about the findings as listed above. All questions were answered and pleased with the treatment. Return instructions were outlined and the patient was discharged in stable condition. Outpatient prescription management: Protonix Referral: The patient was referred back to their primary care physician for follow-up in 2 to 3 days for a recheck of the current condition. Case reviewed with my attending Medical Decision As above Impression Primary Impression: Abdominal discomfort, epigastric Departure Information Dispostion Home / Self-Care Condition GOOD Prescriptions No Active Prescriptions or Reported Meds Referrals No Doctor, Assigned (PCP) Patient Instructions My [facility] Additional Instructions DO NOT drive, drink alcohol, operate machinery, or perform dangerous activities today. You were given medications in the ER that can affect your ability to safely function or operate a vehicle. Oxycodone (OxyIR) 5mg: Take 1-2 pills every four hours for breakthrough pain. Avoid alcohol, operating machinery or dangerous equipment, working on ladders or roofs, DRIVING, or situations where being under the influence may be dangerous. It is recommended to use an [id number] stool softener such as Colace, 100mg twice daily while taking this medication to avoid constipation. Protonix 40 m tablet daily for the next 2 weeks. Zofran 4 m tablet every 6 hours as needed for nausea. Acetaminophen(Tylenol) may be used for fever or pain. Use 1000mg every six hours as needed. Avoid using more than 4000mg in a 24 hour period. Rest and drink plenty of fluids as tolerated. Continue current medications. Avoid strenuous activities and anything that worsens your pain. Resume normal activities once your symptoms resolve. Return to the ER immediately for worsening or persistent chest pain, abdominal pain, vomiting, fevers, chest pains, difficulty breathing, worsening of your condition, or as needed. Follow up with your primary physician in 2-3 days for a recheck of your current condition. If your symptoms persist and get a MRCP for possible retained stone and your common bile duct. Family doctor can order this.
[2016-12-28] MEDS ORDERED: OXYCODONE IR HOME PACK PO ONE (05:15)
[2016-12-28] MEDS ORDERED: ONDANSETRON HOME PACK 4MG OD TAB PO ONE (05:15)
[2016-12-28 05:18] VITALS: BP 104/58; PULSE 64; TEMP 36.4; O2SAT 100
[2016-12-28 05:42] LABS: URINE APPEARANCE CLEAR (CLEAR); URINE BILIRUBIN NEG (NEG); URINE COLOR DK YELLOW; URINE EPITHELIAL CELL AUTO >30 /lpf (0-5); URINE NITRITE NEG (NEG); UROBILINOGEN NEG (NEG); ZZUR CULT IF INDIC CLEAN CATCH YES
[2016-12-28 05:43] LABS: MANUAL MICROSCOPIC REQUIRED? NO; REVIEW REQ? YES
--- NOTE | 2016-12-28 06:49 | DIAGNOSTIC IMAGING REPORT ---
Right upper quadrant ultrasound GALLBLADDER-ABD LIMITED CLINICAL HISTORY: severe epigastric pain, recent GB, ? Retained stone postoperative pain TECHNIQUE: Ultrasound COMPARISON STUDY: 12/09/2016 FINDINGS: Interval cholecystectomy. Interval increased diameter of the biliary ductal system with common bile duct 9 mm. Liver appears uniform. Intrahepatic ductal distention is present. Pancreas is unremarkable. Right kidney is negative for hydronephrosis. IMPRESSION: 1. Interval cholecystectomy. 2. Interval increased diameter of the biliary ductal system raising the possibility of potential distal developing obstructive change, choledocholithiasis. 3. ERCP is suggested as follow-up Electronically signed by: Aidan Haque M.D. 12/28/2016 6:48 AM Dictated Date/Time: 12/28/2016 6:45 AM
== END 2016-12-28 05:20 | disposition home or self-care (01) ==
LOC: C.EDB 03:06
DX: R10.13 Epigastric pain (principal); R11.2 Nausea with vomiting, unspecified

== ENCOUNTER → 2016-12-31 | Outpatient (CLI) | payer OTHER ==
[~2016-12-31] MED LIST changes: -HYDR-5688 PO; +PANT40TA PO
--- NOTE | 2016-12-31 07:54 | DIAGNOSTIC IMAGING REPORT ---
MRCP CLINICAL HISTORY: Right upper quadrant abdominal pain status post cholecystectomy. COMPARISON STUDY: Abdominal ultrasound dated 12/28/2016. TECHNIQUE: Abdominal MRCP is performed utilizing various T2-weighted sequences in the axial and coronal planes. 3-D reformats are created and assessed. IV contrast was not administered for this examination. FINDINGS: The gallbladder is surgically absent. There is mild central intrahepatic biliary ductal dilatation. The common bile duct is dilated measuring up to 11 mm. There are no intraluminal filling defects identified to suggest choledocholithiasis. The common bile duct and the central intrahepatic ducts appear slightly irregular. The pancreatic duct is normal in caliber. The hepatic parenchyma, the spleen, adrenal glands, kidneys, and pancreas are grossly normal as imaged. No abdominal ascites is seen. There is no evidence of bowel obstruction. Moderate constipation is noted. No significant pleural effusion is identified. No upper abdominal lymphadenopathy is seen. IMPRESSION: 1. Status post cholecystectomy. There is no evidence of choledocholithiasis. 2. There is mild intra and extrahepatic biliary ductal dilatation. The common bile duct and the central intrahepatic ducts appear slightly irregular. This is of indeterminant significance. If further assessment is desired then ERCP could be considered. Dictated: 12/31/2016 7:34 AM Transcribed: 12/31/2016 7:54 AM [facility] Electronically signed by: Indio Monsalve M.D. 12/31/2016 9:12 AM Dictated Date/Time: 12/31/2016 7:34 AM
== END | disposition home or self-care (01) ==
LOC: C.MRI 06:06
PROVIDERS: ATTEND Surgery
DX: K81.0 Acute cholecystitis (principal)

== ENCOUNTER → 2017-06-07 | Outpatient (CLI) | payer OTHER ==
[2017-06-07 10:46] LABS: COMPLETE YES; EOS % 0.9 %; HEMATOCRIT 43.2 % (37-47); IG% 0.6 %; LYMPH % 20.8 %; LYMPH ABS # 1.35 K/uL (1.2-3.4); MEAN CELL VOLUME 86.9 fL (80-100); MEAN CORPUSCULAR HEMOGLOBIN 29.8 pg (25-34); MEAN CORPUSCULAR HGB CONC 34.3 g/dl (32-36); MEAN PLATELET VOLUME 10.5 fL (7.4-10.4); MONO % 5.2 %; NEUT % 72.5 %; PLATELET COUNT 179 K/uL (130-400); RED BLOOD COUNT 4.97 M/uL (4.2-5.4); WHITE BLOOD COUNT 6.49 K/uL (4.8-10.8)
[2017-06-07 11:47] LABS: URINE APPEARANCE CLEAR (CLEAR); URINE BILIRUBIN NEG (NEG); URINE COLOR DK YELLOW; URINE EPITHELIAL CELL AUTO >30 /lpf (0-5); URINE NITRITE NEG (NEG); URINE SPECIFIC GRAVITY 1.021 (1.000-1.030); UROBILINOGEN NEG (NEG)
[2017-06-07 11:52] LABS: MANUAL MICROSCOPIC REQUIRED? NO; REVIEW REQ? NO
[2017-06-10 05:52] LABS: CHLAMYDIA TRACH RNA*** NOT DETECTED (NOT DETECTED); GC (NEIS GONORRHOEAE)RNA** NOT DETECTED (NOT DETECTED)
== END | disposition home or self-care (01) ==
LOC: C.LAB1850 09:13
PROVIDERS: ATTEND Obstetrics & Gynecology
DX: Z34.81 Encounter for supervision of other normal pregnancy, first trimester (principal)

== ENCOUNTER → 2017-07-08 | Outpatient (CLI) | payer OTHER ==
[2017-07-08 15:16] LABS: URINE APPEARANCE CLEAR (CLEAR); URINE BILIRUBIN NEG (NEG); URINE COLOR YELLOW; URINE NITRITE NEG (NEG); URINE SPECIFIC GRAVITY 1.026 (1.000-1.030); UROBILINOGEN NEG (NEG)
[2017-07-08 15:20] LABS: MANUAL MICROSCOPIC REQUIRED? NO; REVIEW REQ? NO
== END | disposition home or self-care (01) ==
LOC: C.LABSPEC 14:24
PROVIDERS: ATTEND Obstetrics & Gynecology
DX: R39.9 Unspecified symptoms and signs involving the genitourinary system (principal)

== ENCOUNTER → 2017-08-05 | Outpatient (CLI) | payer OTHER ==
[2017-08-05 12:27] LABS: GTGD 50 Grams
== END | disposition home or self-care (01) ==
LOC: C.LAB1850 10:17
PROVIDERS: ATTEND Obstetrics & Gynecology
DX: Z34.82 Encounter for supervision of other normal pregnancy, second trimester (principal); Z3A.00 Weeks of gestation of pregnancy not specified

== ENCOUNTER → 2017-11-01 | Outpatient (CLI) | payer OTHER ==
[2017-11-01 12:15] LABS: HEMATOCRIT 38.3 % (37-47); HEMOGLOBIN 13.5 g/dL (12.0-16.0)
== END | disposition home or self-care (01) ==
LOC: C.LAB1850 10:07
PROVIDERS: ATTEND Obstetrics & Gynecology
DX: Z34.83 Encounter for supervision of other normal pregnancy, third trimester (principal); Z3A.00 Weeks of gestation of pregnancy not specified

== ENCOUNTER → 2017-11-15 | Outpatient (CLI) | payer OTHER | END | disposition home or self-care (01) | LOC: C.LABSPEC 11:30 | PROVIDERS: ATTEND Obstetrics & Gynecology | DX: Z34.83 Encounter for supervision of other normal pregnancy, third trimester (principal) ==

== ENCOUNTER → 2017-12-13 | Outpatient (CLI) | payer OTHER | END | disposition home or self-care (01) | LOC: C.LABSPEC 10:49 | PROVIDERS: ATTEND Obstetrics & Gynecology | DX: Z34.83 Encounter for supervision of other normal pregnancy, third trimester (principal) ==

== ENCOUNTER 2018-01-08 07:41 | Inpatient (IN) | payer OTHER ==
[~2018-01-08] VITALS: Ht 170.2 cm; Wt 80.0 kg
[2018-01-08] MEDS ORDERED: LACTATED RINGER'S 1000ML 1,000 ML IV SCH (08:03)
[2018-01-08] MEDS ORDERED: LACTATED RINGER'S 1000ML 1,000 ML IV PRN (08:03)
[2018-01-08] MEDS ORDERED: LACTATED RINGER'S 1000ML 500 ML IV PRN ×2 (08:06→12:34)
[2018-01-08] MEDS ORDERED: OXYTOCIN 30 UNITS/500ML NSS IV PRN ×2 (08:15→15:45)
[2018-01-08 08:46] LABS: HEMATOCRIT 38.3 % (37-47); HEMOGLOBIN 13.6 g/dL (12.0-16.0); MEAN CELL VOLUME 90.1 fL (80-100); MEAN CORPUSCULAR HGB CONC 35.5 g/dl (32-36); MEAN PLATELET VOLUME 9.7 fL (7.4-10.4); PLATELET COUNT 133 K/uL (130-400); RED CELL DISTRIBUTION WIDTH CV 14.2 % (11.5-14.5); RED CELL DISTRIBUTION WIDTH SD 46.5 fL (36.4-46.3); WHITE BLOOD COUNT 6.74 K/uL (4.8-10.8)
[2018-01-08 10:31] VITALS: Ht 170.2 cm; Wt 80.0 kg
[2018-01-08] MEDS ORDERED: EpHEDrine SULFATE INJ 50 MG/ML AMP ONE (11:04)
[2018-01-08] MEDS ORDERED: BUPIVACAINE 0.25% 30 ML VIAL ONE (11:04)
[2018-01-08] MEDS ORDERED: FENTANYL CITRATE INJ 50 MCG/1 ML 2 ML VIAL ONE (11:05)
[2018-01-08] MEDS ORDERED: FENTANYL 2MCG/ML ROPIV 1.25MG/ML 100ML BAG EPI ONE (11:06)
[2018-01-08] MEDS ORDERED: NALOXONE HCL INJ 1 MG in SODIUM CHLORIDE 0.9% 1000ML 1,000 ML IV PRN (12:34)
[2018-01-08] MEDS ORDERED: FENTANYL 2MCG/ML ROPIV 1.25MG/ML 100ML BAG EPI PRN (12:45)
[2018-01-08] MEDS ORDERED: ONDANSETRON INJ 2 MG/ML 2 ML VIAL IV PRN (12:45)
[2018-01-08] MEDS ORDERED: NALBUPHINE HCL INJ 10 MG/ML AMP IV PRN (12:45)
[2018-01-08] MEDS ORDERED: NALOXONE HCL INJ 0.4 MG/1 ML VIAL/CARP IV PRN (12:45)
[2018-01-08] MEDS ORDERED: EpHEDrine SULFATE INJ 50 MG/ML AMP IV PRN (12:45)
[2018-01-08] MEDS ORDERED: DiphenhydrAMINE HCL 50 MG/ML VIAL IV PRN (12:45)
[2018-01-08] MEDS ORDERED: PRENTAB26 PO (13:46)
[2018-01-08] MEDS ORDERED: ACETAMINOPHEN 325 MG TAB PO PRN (15:45)
[2018-01-08] MEDS ORDERED: LANOLIN OINT EXT PRN (15:45)
[2018-01-08] MEDS ORDERED: DIPHTHERIA/TETANUS/PERTUSSIS 0.5 ML SYR/VIAL IM. ONE (15:45)
[2018-01-08] MEDS ORDERED: OXYCODONE/ACETAMINOPHEN 5-325 TAB PO PRN (15:45)
[2018-01-08] MEDS ORDERED: HYDROCORTISONE ACETATE 25 MG SUPP PR PRN (15:45)
[2018-01-08] MEDS ORDERED: ACETAMINOPHEN/CODEINE 300/30MG TAB PO PRN (15:45)
[2018-01-08] MEDS ORDERED: BENZOCAINE 20% AER SPR 82.5 GM CAN EXT PRN (15:45)
[2018-01-08] MEDS ORDERED: SUPERCREAM 0.870 % 15GM JAR EXT PRN (15:45)
--- NOTE | 2018-01-08 16:06 | DELIVERY SUMMARY ---
DATE OF OPERATION: 01/08/2018 Trevor was induced at 39+ weeks for prior precipitous labor. Pitocin was started, AROM was performed, group B strep was negative, and then she requested epidural. She progressed to fully dilated quickly and pushed over only a few contractions delivering a baby in the right occiput anterior position. Fluid was clear. There was no nuchal cord. Mouth and then nares suctioned with bulb. Baby delivered by gentle traction. No excessive force used. Live vigorous male . Cord clamped and cut. Cord gases obtained. Cord blood obtained. Placenta removed with gentle traction. IV Pitocin started. Second degree tear repaired with 3-0 Vicryl. Sponge and instrument counts correct. Estimated blood loss 150 mL. I attest to the content of the Intraoperative Record and any orders documented therein. Any exception s are noted below.
--- NOTE | 2018-01-08 17:19 | Anesthesia Procedure Note ---
Anesthesia Epidural Removal Nt Date & Time Jan 08, 2018 at 17:19 Vital Signs Pain Intensity: 0.0 Notes Mental Status: alert / awake / arousable, participated in evaluation Nausea / Vomiting: adequately controlled Pain: adequately controlled Airway Patency, RR, SpO2: stable & adequate BP & HR: stable & adequate Hydration State: stable & adequate Neuraxial Anesthesia: was administered, sensory block is resolving Anesthetic Complications: no major complications apparent, pt satisfied with anesthetic care Epidural: removed without complications, with tip intact
[2018-01-08 19:40] VITALS: BP 117/73; PULSE 75; TEMP 36.7; O2SAT 99
[2018-01-08] MEDS: DOCUSATE SODIUM 100 MG CAP PO SCH (20:31)
[2018-01-08] MEDS: ACETAMINOPHEN/CODEINE 300/30MG TAB PO PRN (20:56)
[2018-01-08 23:40] VITALS: BP 116/67; PULSE 68; TEMP 36.7
[2018-01-09] MEDS: IBUPROFEN 600 MG TAB PO PRN ×4 (02:07→22:52)
[2018-01-09] MEDS: ACETAMINOPHEN/CODEINE 300/30MG TAB PO PRN (02:36)
[2018-01-09 03:00] VITALS: BP 118/69; PULSE 70; TEMP 36.4
[2018-01-09 04:15] VITALS: BP 112/68; PULSE 78; TEMP 36.7; O2SAT 97
[2018-01-09] MEDS ORDERED: CALCIUM CARBONATE 500 MG CHEWABLE PO PRN (04:30)
[2018-01-09] MEDS ORDERED: CALCIUM CARBONATE 500 MG CHEWABLE ONE (04:34)
--- NOTE | 2018-01-09 06:55 | Progress Note ---
Subjective Jan 09, 2018. Subjective conversation w/ patient, physical exam Ambulation: ambulating normally Voiding: no voiding problems Passing Gas: No Diet Tolerance: Regular Diet Lochia: Moderate Feeding Type: Breast Feeding Pain: moderate, but well controlled with meds Comment: pt seen and assessed at bedside; no acute events overnight Review of Systems Constitutional: No fever, No chills Respiratory: No cough, No shortness of breath Cardiac: No chest pain, No edema Abdomen: No nausea, No vomiting no headaches or calf pain Objective Vital Signs Date Time Temp Pulse Resp B/P (MAP) Pulse Ox O2 Delivery O2 Flow Rate FiO2 01/09/18 04:15 36.7 78 18 112/68 (83) 97 Room Air 01/09/18 03:00 36.4 70 18 118/69 (85) Room Air 01/08/18 23:40 36.7 68 16 116/67 (83) Room Air 01/08/18 23:40 Room Air 01/08/18 19:40 36.7 75 18 117/73 (88) 99 Room Air 01/08/18 19:40 99 Room Air Physical Exam General Appearance: WELL-APPEARING, WD/WN, NO APPARENT DISTRESS Respiratory/Chest: chest non-tender, lungs clear, normal breath sounds Cardiovascular: regular rate, rhythm, no edema, no murmur Abdomen: normal bowel sounds, non tender, soft Fundus: Firm, Non-Tender, Relation to Umbilicus (1-2 below) Extremities: normal range of motion, non-tender, normal inspection, no pedal edema, no calf tenderness Laboratory Results Last 24 Hours Test 01/08/18 08:25 01/09/18 04:44 White Blood Count 6.74 K/uL Red Blood Count 4.25 M/uL Hemoglobin 13.6 g/dL Hematocrit 38.3 % Mean Corpuscular Volume 90.1 fL Mean Corpuscular Hemoglobin 32.0 pg Mean Corpuscular Hemoglobin Concent 35.5 g/dl RDW Standard Deviation 46.5 fL RDW Coefficient of Variation 14.2 % Platelet Count 133 K/uL Mean Platelet Volume 9.7 fL Medications Current Inpatient Medications Medications (Trade) Dose Ordered Sig/Ge Route Start Time Stop Time Status Last Admin Dose Admin Lactated Ringer's 1,000 ml @ 125 mls/hr Q8H IV 01/08/18 08:03 01/10/18 08:02 01/08/18 08:50 125 MLS/HR Lactated Ringer's 1,000 ml @ 999 mls/hr Q1H1M PRN IV 01/08/18 08:03 02/07/18 08:02 01/08/18 12:04 999 MLS/HR Oxytocin (Pitocin IV) 30 units UD PRN IV 01/08/18 08:15 02/07/18 08:14 01/08/18 09:05 30 UNITS Lactated Ringer's 500 ml @ 999 mls/hr Q31M PRN IV 01/08/18 08:06 02/07/18 08:05 Oxytocin (Pitocin IV) 30 units UD PRN IV 01/08/18 15:45 02/07/18 15:44 Benzocaine (Dermoplast Aero Spr) 1 appln PRN PRN EXT 01/08/18 15:45 02/07/18 15:44 01/08/18 20:56 1 APPLN Cocaine HCl (Supercream 0.870% Cr) BID PRN EXT 01/08/18 15:45 01/22/18 15:44 Hydrocortisone Acetate (Anusol Hc Supp) [address] 01/08/18 15:45 02/07/18 15:44 Lanolin (Lanolin Oint) PRN PRN EXT 01/08/18 15:45 02/07/18 15:44 Prenat Multivit/ [place]/Iron/Folic Ac ( Vitamin Tab) 1 tab DAILY PO 01/09/18 08:00 02/08/18 07:59 Ibuprofen (Motrin Tab) 600 mg Q4H PRN PO 01/08/18 15:45 02/07/18 15:44 01/09/18 02:07 600 MG Acetaminophen (Tylenol Tab) 650 mg Q6H PRN PO 01/08/18 15:45 02/07/18 15:44 Acetaminophen/ Codeine Phosphate (Tylenol w/ Codeine #3 Tab) 1 tab Q4H PRN PO 01/08/18 15:45 02/07/18 15:44 01/09/18 02:36 1 TAB Acetaminophen/ Codeine Phosphate (Tylenol w/ Codeine #3 Tab) 2 tab Q4H PRN PO 01/08/18 15:45 02/07/18 15:44 Bisacodyl (Dulcolax Tab) 5 mg 20 PO 01/09/18 20:00 01/09/18 20:01 Bisacodyl (Dulcolax Supp) [address] 01/10/18 07:00 Docusate Sodium (coLACE CAP) 100 mg BID PO 01/08/18 20:00 02/07/18 19:59 01/08/18 20:31 100 MG Calcium Carbonate (Tums Chew Tab) 500 mg Q2HWA PRN PO 01/09/18 04:30 02/08/18 04:29 Assessment and Plan Post- Day#: 1 Continue Routine Care: 22 yo F PPD 1 s/p Pt doing well clinically Continue routine care Encourage ambulation, breast feeding pain control with meds prn Resident Physician Supervision Note: I interviewed and examined the patient. Discussed with Dr. Brasher and agree with findings and plan as documented in the note. Any exceptions or clarifications are listed here: [None] Documented By: Leo Huber Resident Tracking Resident Involvement: Resident Care Provided Care Provided: OB Delivery
--- NOTE | 2018-01-09 07:03 | Discharge Instructions ---
Discharge Instructions Date of Service Jan 09, 2018. Admission Reason for Admission: Induction Discharge Discharge Diagnosis / Problem: s/p Discharge Goals Goal(s): Routine recovery after delivery Medications Continue Dispensed Medications: supercream, dermaplast, tucks, lansinoh Activity Recommendations Activity Limitations: per Instructions/Follow-up section . Instructions / Follow-Up Instructions / Follow-Up ACTIVITY RECOMMENDATIONS: * Gradual return to full activity over the next 2-3 weeks. * No lifting - nothing heavier than baby over the next 2-3 weeks. * Do not engage in vigorous exercise, sexual activity or sports until cleared by your physician. * Do not drive or operate any motorized equipment until cleared by your physician. * You may shower/bathe daily. MEDICATIONS: For discomfort or pain, you may use Acetaminophen (Tylenol), Ibuprofen (Advil), or Naproxen (Aleve) following the package directions. For constipation you may use Colace following the package directions. BREAST CARE: If you are not breast feeding: * Wear a supportive bra 24 hours a day for one to two weeks. * Avoid stimulating your breasts and nipples as much as possible during the first few weeks after delivery. * When taking a shower, have the warm water hit your back, not breasts. * When your breasts feel full, apply ice packs. Usually three to four times a day helps ease the discomfort. * Take a mild pain medication (Tylenol / Motrin) when you are uncomfortable. If breast feeding: * Use breast milk to lubricate nipples. Lansinoh cream may be used for sore nipples. You do not need to remove cream prior to breast feeding. If using a different brand of cream, check the label for directions regarding removal of cream prior to nursing. * Wear a supportive bra. * If having problems with breasts or breast feeding, call a organizational consultant or your health care provider. EPISIOTOMY CARE: After delivery, if you have an episiotomy (stitches), the following steps will ease discomfort and aid healing. * For the first 24 hours after delivery, place ice packs next to your episiotomy to help reduce swelling. * After the first 24 hour-period, sitz baths, either portable or in the tub, are suggested. A shower with a shower arm sprayed over the episiotomy may be comforting. * Kely care should be done after each voiding and bowel movement. Squirt warm water from a plastic bottle over the perineum (region of the body between the anus and urinary opening) and pat dry. * Use Dermoplast to ease discomfort. Shake container. Newcomb directly over the episiotomy. Place a Tucks on a clean sanitary pad next to your episiotomy. SPECIAL CARE INSTRUCTIONS: When you are discharged from the hospital, it is important for you to follow the instructions listed below: * During the first week at home, you should be able to care for yourself and your baby. In addition, the usual light household activities are encouraged. * Limit your activities to the way you feel. Do not try to clean the house or move furniture. Be sensible. * If you actively engage in sports and have done so up until the time of your delivery, you may resume these activities as soon as you feel able. This may take up to one month or even longer. Use good judgment. * Continue to take your vitamins for at least six weeks after the of your baby. * Your diet need not be limited unless you were on a special diet before your delivery. Breast-feeding mothers need around 2500 calories per day and at least 64-80 ounces of fluid per day (8 to 10 glasses). * You should eat foods from the four major food groups. Crash diets or fad diets are to be avoided. Eating lean meats, fresh fruits and vegetables, low-fat dairy products, high fiber foods and a regular exercise program, will help you get back to your pre- weight without putting your health at risk. * Constipation is sometimes a problem after delivery. Take a mild laxative as needed. If breast feeding, Milk of Magnesia is acceptable to use. You may use a suppository or Fleets enema if no episiotomy. * A daily shower or tub bath is suggested. Be sure to thoroughly and gently dry the perineum. * A bloody vaginal discharge will usually continue until around four weeks post . A small amount of bleeding may continue for as long as six weeks. Vaginal discharge changes from the bright red bleeding after delivery to pink then brownish and finally yellowish-pink before becoming white and disappearing. * Bleeding may increase with activity. Your first period may come in 4-8 weeks. If you are breast feeding, your period may be delayed even longer. * Rule (sex) can begin whenever both you and your partner feel comfortable and do not have any form of genital infection. It is recommended that you wait at least six weeks for internal and external healing to occur. If you have questions, please talk to your health care practitioner. A condom should be used to prevent infection and . * Foreplay, gentle intercourse and lubrication is very important the first several times to prevent pain. A water-based lubricant such as K-Y jelly or Astroglide may be used. * If you have RH negative blood and your baby is RH positive, you will receive RHOGAM by injection prior to discharge. The nurse will give you a card to keep with you that has the date and place that you received RHOGAM after delivery. * During your care, you had a Rubella screen done to check for the presence of rubella antibodies in your blood. If your test was negative, you will receive a Rubella vaccine prior to discharge. This vaccine may cause a fever, soreness at the injection site and flu-like symptoms. If these symptoms persist, notify your health care practitioner. is not advised for one month after a Rubella vaccine. * Verbalizes understanding of car seat law as reviewed with patient nursing. * Car Seat hand-out given and reviewed with patient by nursing. * Shaken baby information reviewed with patient by nursing. Call you doctor if: * Heavy bleeding (saturating several pads an hour) or passing clots the size of your fist. * A fever >101 degrees F (38.3 degrees C) on two occasions four hours apart and /or chills. * Unusual pain in the pelvic or vaginal areas. * "Baby Blues" lasting longer than two weeks. If you have any questions or concerns, call your health care practitioner at . FOLLOW UP VISIT: * Please call the office at to schedule a 6 week examination. It is important you keep this appointment. It is important for you to make arrangements for either yearly or twice yearly check-ups thereafter. Current Hospital Diet Patient's current hospital diet: Regular OB Diet Discharge Diet Recommended Diet: Regular OB Diet Pending Studies Studies pending at discharge: no Medical Emergencies . Who to Call and When: Medical Emergencies: If at any time you feel your situation is an emergency, please call [phone] immediately. . Non-Emergent Contact Non-Emergency issues call your: Musical Performer . . "Provider Documentation" section prepared by Sameera Olguin. .
[2018-01-09 07:45] VITALS: BP 112/64; PULSE 75; TEMP 36.8; O2SAT 97
[2018-01-09 07:55] LABS: HEMATOCRIT 39.2 % (37-47); HEMOGLOBIN 13.3 g/dL (12.0-16.0)
[2018-01-09] MEDS: PRENATAL VITAMIN TAB PO SCH (08:22)
[2018-01-09] MEDS: DOCUSATE SODIUM 100 MG CAP PO SCH ×2 (08:22→20:09)
[2018-01-09 12:05] VITALS: BP 119/73; PULSE 66; TEMP 36.4; O2SAT 98
[2018-01-09 15:30] VITALS: BP 116/64; PULSE 75; TEMP 36.4; O2SAT 96
[2018-01-09] MEDS ORDERED: BISACODYL 5 MG TABEC PO SCH (20:00)
[2018-01-09 23:55] VITALS: BP 126/67; PULSE 74; TEMP 36.5; O2SAT 96
[2018-01-10] MEDS: IBUPROFEN 600 MG TAB PO PRN ×2 (05:20→09:35)
--- NOTE | 2018-01-10 05:35 | Progress Note ---
Subjective Jan 10, 2018. Subjective conversation w/ patient, physical exam Ambulation: ambulating normally Voiding: no voiding problems Diet Tolerance: Regular Diet Lochia: Small Feeding Type: Breast Feeding Pain: no pain issues Objective Vital Signs Date Time Temp Pulse Resp B/P (MAP) Pulse Ox O2 Delivery O2 Flow Rate FiO2 01/09/18 23:55 96 Room Air 01/09/18 23:55 36.5 74 16 126/67 (86) 96 Room Air 01/09/18 15:30 36.4 75 18 116/64 (81) 96 Room Air 01/09/18 15:30 96 Room Air 01/09/18 12:05 36.4 66 16 119/73 (88) 98 Room Air 01/09/18 07:45 36.8 75 18 112/64 (80) 97 Room Air 01/09/18 07:45 Room Air Physical Exam General Appearance: WELL-APPEARING, WD/WN, NO APPARENT DISTRESS Respiratory/Chest: lungs clear Cardiovascular: regular rate, rhythm Abdomen: non tender, soft Fundus: Firm, Relation to Umbilicus ( 2down) Extremities: non-tender Laboratory Results Last 24 Hours Test 01/09/18 07:19 01/10/18 04:44 Hemoglobin 13.3 g/dL Hematocrit 39.2 % Assessment and Plan Post- Day#: 2 Continue Routine Care: stable, d/c home, f/u 6 wks pp. instructions reviewed. breast feeding. rh pos/ rubella immune. plans iud at 12wk pp. aware of options and still thinking about it.
[2018-01-10] MEDS ORDERED: BISACODYL 10 MG SUPP PR PRN (07:00)
[2018-01-10 08:00] VITALS: BP 108/66; PULSE 69; TEMP 36.9; O2SAT 98
[2018-01-10] MEDS: DOCUSATE SODIUM 100 MG CAP PO SCH (08:18)
[2018-01-10] MEDS: PRENATAL VITAMIN TAB PO SCH (08:18)
[2018-01-10 08:36] LABS: HEMATOCRIT 39.5 % (37-47); HEMOGLOBIN 13.7 g/dL (12.0-16.0); MEAN CELL VOLUME 92.5 fL (80-100); MEAN CORPUSCULAR HEMOGLOBIN 32.1 pg (25-34); MEAN CORPUSCULAR HGB CONC 34.7 g/dl (32-36); MEAN PLATELET VOLUME 10.3 fL (7.4-10.4); PLATELET COUNT 129 K/uL (130-400); RED CELL DISTRIBUTION WIDTH CV 14.5 % (11.5-14.5); RED CELL DISTRIBUTION WIDTH SD 49.1 fL (36.4-46.3); WHITE BLOOD COUNT 8.06 K/uL (4.8-10.8)
[2018-01-10 14:30] VITALS: BP_DIAS 66; PULSE 69; TEMP 36.9
== END 2018-01-10 14:51 | disposition home or self-care (01) | DRG 775 ==
LOC: C.LD 07:41 → C.OBG 20:01
PROVIDERS: ADMIT Obstetrics & Gynecology; ATTEND Obstetrics & Gynecology
PROC: 10907ZC Drainage of Amniotic Fluid, Therapeutic from Products of Conception, Via Natural or Artificial Opening (ICD-10-PCS; principal; 2018-01-08)
PROC: 3E033VJ Introduction of Other Hormone into Peripheral Vein, Percutaneous Approach (ICD-10-PCS; principal; 2018-01-08)
PROC: 10E0XZZ Delivery of Products of Conception, External Approach (ICD-10-PCS; principal; 2018-01-08)
DX: O09.293 Supervision of pregnancy with other poor reproductive or obstetric history, third trimester (principal); Z3A.39 39 weeks gestation of pregnancy; Z37.0 Single live birth